=== PATIENT | female | born 2000 | race African-American/Black ===

== ENCOUNTER 2023-01-10 08:48 | Emergency (ER) | payer OTHER, SELFPAY ==
--- NOTE | ~2023-01-10 | XR_ITS ---
EXAMINATION: XR shoulder RT min 2V INDICATION: Right shoulder pain TECHNIQUE: Four views of the right shoulder are submitted. COMPARISON: None FINDINGS: Normal alignment. No fracture. Glenohumeral and acromioclavicular joint spaces are normal. Soft tissues are unremarkable. IMPRESSION: 1. No acute osseous abnormality. Reviewed, dictated and finalized at location B. ENTRY COORDINATOR
--- NOTE | ~2023-01-10 | XR_ITS ---
EXAMINATION: XR hand LT min 3V INDICATION: Left hand pain TECHNIQUE: Three views of the left hand are obtained. COMPARISON: 10/08/2013 FINDINGS: No fracture, dislocation, or subluxation. The bones, soft tissues, and joint spaces are nor mal. IMPRESSION: 1. No acute osseous abnormality. Reviewed, dictated and finalized at location B. ES SUPERINTENDENT
--- NOTE | ~2023-01-10 | XR_ITS ---
EXAMINATION: XR elbow RT min 3V INDICATION: Right elbow pain TECHNIQUE: Four views of the right elbow are obtained. COMPARISON: None available FINDINGS: No fracture, dislocation, or subluxation. The bones, soft tissues, and joint spaces are nor mal. IMPRESSION: 1. No acute osseous abnormality. Reviewed, dictated and finalized at location B. ER
[2023-01-10 08:53] VITALS: BP 120/69; PULSE 64; RESP 16; TEMP 36.3; O2SAT 100
--- NOTE | 2023-01-10 09:18 | ED.GENADULT ---
HPI - General Adult General Chief complaint: Unspecified Stated complaint: R ELBOW AND L FINGER PAIN AND WANTS BLOODWORK Time Seen by Provider: 01/10/23 09:00 History of Present Illness HPI narrative: Patient is a 22-year-old right-handed female here for evaluation of right elbow, right shoulder and left hand pain over the past day. Patient states that she is very clumsy and ran into a object yesterday causing her to have pain and swelling at the areas. Reports extension of the elbow causes pain. She has not taken any medicine for pain, does not like taking it reportedly. Denies any numbness or tingling anywhere. No head injury or loss of consciousness sustained yesterday. Related Data Allergies Allergy/AdvReac Type Severity Reaction Status Date / Time No Known Allergies Allergy Verified 09/16/22 14:46 Review of Systems Review of Systems: Gen.: Denies fevers or chills Eyes: Denies eye pain or visual change ENT: Denies congestion Respiratory: Denies shortness of breath or cough CV: Denies chest pain or palpitations GI: Denies abdominal pain nausea, emesis or diarrhea denies burning, urgency, frequency or hematuria Musculoskeletal: Reports elbow, shoulder and left finger pain Neuro: Denies numbness, tingling, weakness or focal weakness Skin: Denies rash Except as documented, all other systems reviewed and negative PMFSH Past Medical History Medical History Anxiety Depression Encounter for screening examination for sexually transmitted disease Irregular periods Family History Family History Other Hypertension Social History Social History (Updated 09/16/22 @ 14:47 by NANETTE Greenberg) Smoking status: Current some day smoker Tobacco type: e-cigarettes/vaping Alcohol intake: current Alcohol use details: socially Substance use: current Substance use type: marijuana Living arrangements: other Additional living arrangements comments: single Occupation/Education: occupation 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 Head: Normocephalic and atraumatic. EYES: PERRLA/EOMI, conjunctivae clear NOSE: No nasal drainage EARS: External ear normal in appearance THROAT: Oropharynx is clear. Mucous membranes are moist. NECK: Supple. No adenopathy, no masses. RESPIRATORY: Airway patent, respirations nonlabored. Clear to auscultation bilaterally, no rales, rhonchi, wheezing. CARDIOVASCULAR: Regular rate and rhythm without murmurs, rubs, or gallops. ABDOMINAL: Normoactive bowel sounds. Soft, nontender, nondistended. No rebound tenderness or guarding. MUSCULOSKELETAL: Right elbow is held at 90 degrees of flexion with small area of ecchymosis and swelling over the posterior aspect of the olecranon that is tender to palpation. Reports extreme pain with extension at the elbow . Tenderness to palpation along the humeral head with slight deformity noted. Left fourth and fifth digits are with deformity, slightly held in flexion NEURO: Normal speech. No focal neurologic deficits. SKIN: Skin is warm and dry. No rashes. PSYCHIATRIC: Normal affect/mood. Course Vital Signs Vital signs: Vital Signs Temperature 97.4 F L 01/10/23 08:53 Pulse Rate 64 01/10/23 08:53 Respiratory Rate 16 01/10/23 08:53 Blood Pressure 120/69 01/10/23 08:53 Pulse Oximetry 100 01/10/23 08:53 Oxygen Delivery Room Air 01/10/23 08:53 Temperature 97.4 F L 01/10/23 08:53 Pulse Rate 64 01/10/23 08:53 Respiratory Rate 16 01/10/23 08:53 Blood Pressure 120/69 01/10/23 08:53 Pulse Oximetry 100 01/10/23 08:53 Oxygen Delivery Room Air 01/10/23 08:53 Medical Decision Making MDM
== END 2023-01-10 10:32 | disposition home or self-care (01) ==
PROVIDERS: Emergency Provider Physician Assistant
DX: S50.01XA Contusion of right elbow, initial encounter (principal); S49.91XA Unspecified injury of right shoulder and upper arm, initial encounter; S69.92XA Unspecified injury of left wrist, hand and finger(s), initial encounter; F17.290 Nicotine dependence, other tobacco product, uncomplicated; W22.8XXA Striking against or struck by other objects, initial encounter
CPT/HCPCS: 73030; 73080; 73130; 99284

== ENCOUNTER 2023-05-26 10:59 | Outpatient (CLI) | payer OTHER, SELFPAY ==
[2023-05-26 12:26] LABS: Basophils Percent Auto 0.4 % (0.2-1.2); Eosinophils Percent Auto 0.6 % (0-4.4); Hematocrit 41.1 % (37.0-47.0); Hemoglobin 13.6 g/dL (12.0-15.0); Immature Granulocyte Absolute 0.01 K/mm3 (0.00-0.031); Immature Granulocyte Percent A 0.2 % (0-0.5); Lymphocytes Absolute Auto 1.71 K/mm3 (0.9-3.2); Mean Corpuscular HGB Conc 33.1 g/dl (32-36); Mean Corpuscular Hemoglobin 30.8 pg (26-34); Mean Platelet Volume 9.8 fl (7.4-10.4); Monocytes Absolute Auto 0.3 K/mm3 (0.1-0.6); Monocytes Percent Auto 5.9 % (2.6-8.5); Neutrophils Absolute Auto 2.8 K/mm3 (1.3-6.7); Neutrophils Percent Auto 57.9 % (45.5-73.1); Platelet Count Result 221 k/mm3 (150-375); Red Blood Count 4.42 M/mm3 (4.2-5.4); Red Cell Distribution Width 12.2 % (11.5-14.5); White Blood Count 4.9 K/mm3 (4.5-10.0)
[2023-05-26 12:55] LABS: Beta HCG Quantitative < 2.39 mIU/ML
[2023-05-26 13:10] LABS: Hepatitis B Surface Antigen Negative (Negative); Thyroid Stimulating Hormone 0.179 uIU/mL (0.465-4.680)
[2023-05-26 13:16] LABS: HAV RESULT Negative (Negative); Hepatitis B Core IgM Result Negative (Negative)
[2023-05-26 13:19] LABS: HIV 1/2 Ab P24 Ag Result Negative (Negative)
[2023-05-26 13:28] LABS: Hepatitis C Virus Antibody Negative (Negative)
[2023-05-26 15:14] LABS: Rapid Plasma Reagin Non-Reactive (NonReactive)
[2023-05-30 10:57] LABS: Testosterone Total 62 ng/dL (2-45)
[2023-06-01 05:13] LABS: FSH 7.4 mIU/mL (***); Progesterone 0.9 ng/mL (***)
[2023-06-03 17:19] LABS: Estradiol, Ultrasensitive 80 pg/mL
== END 2023-05-26 11:00 | disposition home or self-care (01) ==
PROVIDERS: PCP Family Medicine; Visit Provider Student in an Organized Health Care Education/Training Program
DX: Z11.3 Encounter for screening for infections with a predominantly sexual mode of transmission (principal); N92.0 Excessive and frequent menstruation with regular cycle
CPT/HCPCS: 36415; 80074; 82670; 83001; 84144; 84402; 84403; 84443; 84702; 85025; 86592; 86695; 86696; 86703; G0432

== ENCOUNTER 2023-05-27 09:33 | Outpatient (CLI) | payer OTHER, SELFPAY ==
[2023-05-27 10:49] LABS: Free T4 Free Thyroxine 1.02 ng/mL (0.78-2.19)
== END 2023-05-27 09:34 | disposition home or self-care (01) ==
PROVIDERS: PCP Family Medicine; Visit Provider Student in an Organized Health Care Education/Training Program
DX: R79.89 Other specified abnormal findings of blood chemistry (principal)
CPT/HCPCS: 36415; 84439

== ENCOUNTER 2023-09-02 10:38 | Outpatient (CLI) | payer OTHER, SELFPAY ==
[2023-09-02 11:53] LABS: Thyroid Stimulating Hormone 0.279 uIU/mL (0.465-4.680)
== END 2023-09-02 10:39 | disposition home or self-care (01) ==
LOC: ANHLAB 10:40
PROVIDERS: PCP Family Medicine; Visit Provider Student in an Organized Health Care Education/Training Program
DX: N92.0 Excessive and frequent menstruation with regular cycle (principal)
CPT/HCPCS: 36415; 84443

== ENCOUNTER 2023-09-12 10:41 | Outpatient (CLI) | payer OTHER, SELFPAY ==
[2023-09-16 11:06] LABS: Testosterone Total 50 ng/dL (2-45)
[2023-09-16 11:24] LABS: Testosterone Free 2.8 pg/mL (0.2-5.0)
== END 2023-09-12 10:42 | disposition home or self-care (01) ==
LOC: ANHLAB 10:42
PROVIDERS: PCP Family Medicine; Visit Provider Student in an Organized Health Care Education/Training Program
DX: N92.0 Excessive and frequent menstruation with regular cycle (principal)
CPT/HCPCS: 36415; 84402; 84403

== ENCOUNTER 2023-09-23 11:06 | Outpatient (CLI) | payer OTHER, SELFPAY ==
[2023-09-26 15:16] LABS: Triiodothyronine T3 Free 3.2 pg/mL (2.3-4.2)
== END 2023-09-23 11:07 | disposition home or self-care (01) ==
LOC: ANHLAB 11:08
PROVIDERS: PCP Family Medicine; Referring Provider Student in an Organized Health Care Education/Training Program; Visit Provider Physician Assistant
DX: R10.2 Pelvic and perineal pain (principal); R79.89 Other specified abnormal findings of blood chemistry
CPT/HCPCS: 36415; 84439; 84481; 87086

== ENCOUNTER 2023-09-30 14:02 | Outpatient (CLI) | payer OTHER, SELFPAY ==
--- NOTE | ~2023-09-30 | US_ITS ---
US thyroid INDICATION: Thyrotoxicosis TECHNIQUE: Real-time sonographic images of the thyroid gland were obtained. COMPARISON: No prior studies for comparison. FINDINGS: The right thyroid lobe measures 5.5 x 1.7 x 1.6 cm. The left thyroid lobe measures 5.4 x 1 .9 x 1.8 cm. There is normal echotexture and echogenicity throughout the thyroid gland. No discrete n odules identified. Increased vascular flow is present. IMPRESSION: 1. Enlarged hypervascular thyroid gland. No discrete mass. Reviewed, dictated and finalized at location A.
== END 2023-09-30 14:03 | disposition home or self-care (01) ==
PROVIDERS: PCP Family Medicine; Visit Provider Physician Assistant
DX: E04.9 Nontoxic goiter, unspecified (principal); E05.90 Thyrotoxicosis, unspecified without thyrotoxic crisis or storm
CPT/HCPCS: 76536

== ENCOUNTER 2024-06-04 10:56 | Outpatient (CLI) | payer OTHER, SELFPAY | END 2024-06-04 10:57 | disposition home or self-care (01) | LOC: ANHLAB 10:58 | PROVIDERS: PCP Family Medicine; Visit Provider Student in an Organized Health Care Education/Training Program | DX: N92.6 Irregular menstruation, unspecified (principal) | CPT/HCPCS: 36415; 84702 ==

== ENCOUNTER 2024-06-18 16:25 | Outpatient (CLI) | payer MEDICAID, SELFPAY ==
[2024-06-18 16:58] LABS: Basophils Percent Auto 0.3 % (0.2-1.2); Eosinophils Percent Auto 0.4 % (0-4.4); Hematocrit 38.5 % (37.0-47.0); Hemoglobin 12.7 g/dL (12.0-15.0); Immature Granulocyte Absolute 0.04 K/mm3 (0.00-0.031); Immature Granulocyte Percent A 0.4 % (0-0.5); Lymphocytes Absolute Auto 1.38 K/mm3 (0.9-3.2); Lymphocytes Percent Auto 12.6 % (18.3-44.2); Mean Corpuscular Hemoglobin 30.5 pg (26-34); Mean Corpuscular Volume 92.5 fl (80-100); Mean Platelet Volume 9.3 fl (7.4-10.4); Monocytes Absolute Auto 0.7 K/mm3 (0.1-0.6); Monocytes Percent Auto 6.7 % (2.6-8.5); Neutrophils Absolute Auto 8.8 K/mm3 (1.3-6.7); Neutrophils Percent Auto 79.6 % (45.5-73.1); Platelet Count Result 265 k/mm3 (150-375); Red Blood Count 4.16 M/mm3 (4.2-5.4); Red Cell Distribution Width 12.2 % (11.5-14.5)
[2024-06-18 18:03] LABS: Hepatitis B Surface Antigen Negative (Negative); Rubella IgG Antibody 4.1 IU/ML
[2024-06-18 18:03] LABS: HIV 1/2 Ab P24 Ag Result Negative (Negative)
[2024-06-19 12:18] LABS: Varicella IgG Antibody <135.00 index
[2024-06-19 13:35] LABS: Rapid Plasma Reagin Non-Reactive (NonReactive)
[2024-06-19 15:37] LABS: CMV IgG Antibody <0.60 U/mL
== END 2024-06-18 16:26 | disposition home or self-care (01) ==
LOC: ANHLAB 16:27
PROVIDERS: PCP Family Medicine; Visit Provider Student in an Organized Health Care Education/Training Program
DX: N94.89 Other specified conditions associated with female genital organs and menstrual cycle (principal)
CPT/HCPCS: 36415; 84702; 85025; 86592; 86644; 86703; 86747; 86762; 86787; 86850; 86900; 86901; 87086; 87340; G0432

== ENCOUNTER 2025-07-01 14:36 | Outpatient (CLI) | payer OTHER, SELFPAY ==
--- OUTSIDE RECORDS SUMMARY | 2025-07-01 14:53 | XMS_ITS | Clinical Summary ---
Author Organization [facility] Address [address] [place] [address] Phone Care Team Providers Care Cloth Handler Name Role Phone Daly Medeiros MD Primary Care Provider [phone] Allergies No known active allergies Medications cyclobenzaprine (FLEXERIL) 10 MG Tablet Take 1 Tablet by mouth 3 times daily as needed for Muscle spasms. 30 Tablet 03/06/2023 Active naproxen (NAPROSYN) 500 MG Tablet Take 1 Tablet by mouth 2 times daily as needed for Mild or more severe pain. 20 Tablet 03/06/2023 Active Social History Tobacco Use Types Packs/Day Years Used Date Smoking Tobacco: Never Smokeless Tobacco: Never Tobacco Cessation:Counseling Given: No Alcohol Use Standard Drinks/Week Comments Not Asked 0 (1 standard drink = 0.6 oz pur e alcohol) socially Comments No Sex and Gender Information Value Date Recorded Sex Assigned at Not on file Legal Sex Female 9:39 AM CDT Gender Identity Not on file Sexual Orientation Not on file Last Filed Vital Signs Vital Sign Reading Time Taken Comments Blood Pressure 101/55 03/06/2023 8:15 PM CDT Pulse 71 03/06/2023 8:15 PM CDT Temperature 36.6 C (97.8 F) 03/06/2023 5:45 PM CDT Respiratory Rate 18 03/06/2023 5:45 PM CDT Oxygen Saturation 98% 03/06/2023 8:15 PM CDT Inhaled Oxygen Concentration - - Weight 45.4 kg (100 lb) 03/06/2023 5:45 PM CDT Height 160 cm (5' 3) 03/06/2023 5:45 PM CDT Body Mass Index 17.71 03/06/2023 5:45 PM CDT Plan of Treatment Health Maintenance Due Date Last Done Comments Hepatitis C Virus (HCV) Screening 1998 Hepatitis B Immunization (3 of 3 - 3-dose series) 01/05/2000 11/10/1999, 1998 Pap Smear 2019 SARS-COV-2 Immunization ( season) 2024 04/05/2021, 03/11/2021 Influenza Immunization (#1) 2025 Respiratory Syncytial Virus (RSV) Immunization (Adult) (1 - 1-dose 75+ series) 2073 DTaP/Tdap/Td Immunization Discontinued 2013, 02/08/2009, 08/24/1999, Additional history exists Meningococcal Immunization (ACWY) Completed 07/08/2014 TdaP Immunization Completed 07/08/2014, 02/08/2009 Human Papillomavirus (HPV) Immunization Completed 08/27/2016, 06/23/2015, 07/08/2014 Pneumococcal Immunization Combined Aged Out No longer eligible based on patient's age to complete this topic Rotavirus Immunization Aged Out No lo nger eligible based on patient's age to complete this topic Insurance [employer] Care Teams Cloth Handler Relationship Specialty Start Date End Date Daly Medeiros MD [address] [place] [address] PCP - General Family Medicine 03/06/23
--- OUTSIDE RECORDS SUMMARY | 2025-07-01 14:53 | XMS_ITS | Clinical Summary ---
Author Organization [facility] Address [address] [place] [address] Care Team Providers Care Shake Cutter Name Role Phone Michela Sylvester MD Primary Care Provider [phone] Allergies Active Allergy Reactions Criticality Noted Date Comments No Known Allergies Other (See comments) Low 019 Reaction: Medications No known medications Active Problems Problem Noted Date Diagnosed Date Subclinical hyperthyroidism 04/03/2019 Assessment & Plan (04/03/2019 4:30 PM CDT): With normal thyroid ultrasound. I would not explain any of the patient's symptoms based on this very mild subclinical hyperthyroidism which will not have any indication for treatment. I will recheck thyroid function tests including testing for autoimmune thyroiditis with TPO antibodies and TSI. If there is any abnormality needs to be addressed I will advise the patient Otherwise will follow up in 4 months. Surgical History Surgery Date Site/Laterality Comments OTHER SURGICAL HISTORY Irregular, heavy, painful periods: OCP's OTHER SURGICAL HISTORY Chlamydia: Zithromax OTHER SURGICAL HISTORY 2014 Suicide attempt 10/24/15: hospitalization OTHER SURGICAL HISTORY 2016 : induced Medical History Medical History Date Comments Hx Other Medical Irregular, heav y, painful periods Hx Other Medical Headaches Hx Other Medical 2016 Chlamydia Hx Other Medical Depression Hx Other Medical 2014 Suicide attempt 10/24/15 Hx Other Medical 2016 Anxiety Family History Medical History Relation Name Comments Hypertension Father Hypertension; Diabetes Father's Sister 1 Diabetes; Brain cancer Father's Sister 2 Brain tumo r; Diabetes Maternal Grandfather Diabete s; Suicidality Mother Suicide; Cause of : Suicide Cancer Other 1 Family history of Cancer; Heart disease Other 2 Family history of Heart disease; Hypertension Other 3 Family history of Hypertension; Hypertension Paternal Grandfather Hyperte nsion; Diabetes Paternal Grandmother Diabete s; Hypertension Paternal Grandmother Hyperte nsion; Stroke Paternal Grandmother Stroke; Relation Name Status Comments Father Father's Sister 1 Father's Sister 2 Maternal Grandfather Mother (Age 41) Other 1 Other 2 Other 3 Paternal Grandfather Paternal Grandmother Social History Tobacco Use Types Packs/Day Years Used Date Smoking Tobacco: Never Smokeless Tobacco: Never Tobacco Cessation:Counseling Given: Not Answered Alcohol Use Standard Drinks/Week Comments Yes 0 (1 standard drink = 0.6 oz pur e alcohol) AUDIT-C Answer Date Recorded Frequency of Alcohol Consumption Monthly or less 04/03/2019 Average Number of Drinks Not on file 019 Frequency of Binge Drinking Not on file 05/2019 PHQ-2 Answer Date Recorded PHQ-2 Score 1 07/20/2019 Comments Unknown Sex and Gender Information Value Date Recorded Sex Assigned at Not on file Legal Sex Female 9:36 AM LUMBER BUYER Gender Identity Not on file Sexual Orientation Not on file Obstetrics History Last Filed Vital Signs Vital Sign Reading Time Taken Comments Blood Pressure 135/94 10/11/2022 9:45 PM LUMBER BUYER Pulse 92 10/11/2022 9:45 PM LUMBER BUYER Temperature 36.7 C (98 F) 10/11/2022 9:45 PM LUMBER BUYER Respiratory Rate 18 10/11/2022 9:45 PM LUMBER BUYER Oxygen Saturation 100% 10/11/2022 9:45 PM LUMBER BUYER Inhaled Oxygen Concentration - - Weight 45.4 kg (100 lb) 10/11/2022 9:45 PM LUMBER BUYER Height 160 cm (5' 3) 04/03/2019 1:42 PM CDT Body Mass Index 17.71 04/03/2019 1:42 PM CDT Plan of Treatment Health Maintenance Due Date Last Done Comments Cervical Cancer Screening 1998 DTaP/Tdap/Td Vaccine (1 - Tdap) 2009 Varicella Vaccines (1 of 2 - 13+ 2-dose series) 2011 Hepatitis B Screening 2016 Regular Well Visit/Exam 18-64 2016 Depression Screening 04/03/2020 04/03/2019 HPV Vaccines (1 - 3-dose SCD M series) 2025 Influenza Vaccine (#1) 2025 Hepatitis C Screening Completed 02/24/2016 Pneumococcal vaccine <65 Aged Out No longer eligible based on patient's age to complete this topic Procedures Procedure Name Priority Date/Time Associated Diagnosis Comments SERUM HEPATITIS C AB Routine 02/24/2016 2:42 PM CDT from Last 3 Months or Most Recently Relevant to Health Maintenance Results * Serum Hepatitis C ab (02/24/2016 2:42 PM CDT) HCV ab Negative Negative HISTORICAL RESULTS Serum 02/24/2016 2:42 PM CDT Jonna Ruelas MD LAB BLOOD ORDERABLE S Final Result HISTORICAL RESULTS from Last 3 Months or Most Recently Relevant to Health Maintenance Insurance [employer] OPEN ACCESS Care Teams Shake Cutter Relationship Specialty Start Date End Date Michela Sylvester MD [address] [place] [id number] PCP - General 09/24/13
--- OUTSIDE RECORDS SUMMARY | 2025-07-01 14:53 | XMS_ITS | Referral Summary ---
Author Organization [facility] Address [address] [place] [address] Care Team Providers Care Gas Brazer Name Role Phone Michela Sylvester MD Primary Care Provider [phone] Allergies Active Allergy Reactions Criticality Noted Date [...] Otherwise will follow up in 4 months. 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 SUPERVISOR Gender Identity Not on file Sexual Orientation Not on file Last Filed Vital Signs Vital Sign Reading Time Taken Comments Blood Pressure 135/94 10/11/2022 9:45 PM STOCK SUPERVISOR Pulse 92 10/11/2022 9:45 PM STOCK SUPERVISOR Temperature 36.7 C (98 F) 10/11/2022 9:45 PM STOCK SUPERVISOR Respiratory Rate 18 10/11/2022 9:45 PM STOCK SUPERVISOR Oxygen Saturation 100% 10/11/2022 9:45 PM STOCK SUPERVISOR Inhaled Oxygen Concentration - - Weight 45.4 kg (100 lb) 10/11/2022 9:45 PM STOCK SUPERVISOR Height 160 cm (5' 3) 04/03/2019 1:42 PM CDT Body Mass Index 17.71 04/03/2019 1:42 PM CDT Plan of Treatment Not on file Procedures Procedure Name Priority Date/Time Associated Diagnosis Comments SERUM HEPATITIS C AB Routine 02/24/2016 2:42 PM CDT from Last 3 Months or Most Recently Relevant to Health Maintenance Results * Serum Hepatitis C ab (02/24/2016 2:42 PM CDT) HCV ab Negative Negative HISTORICAL RESULTS Serum 02/24/2016 2:42 PM CDT us Jonna Ruelas MD LAB BLOOD ORDERABLE S Final Result HISTORICAL RESULTS from Last 3 Months or Most Recently Relevant to Health Maintenance Insurance [employer] OPEN ACCESS [employer] OPEN ACCESS Care Teams Gas Brazer Relationship Specialty Start Date End Date Michela Sylvester MD [address] [facility] [address] [place] [id number] PCP - General 09/24/13
[2025-07-01 15:03] LABS: Hematocrit 43.7 % (37.0-47.0); Hemoglobin 13.8 g/dL (12.0-15.0); Mean Corpuscular HGB Conc 31.6 g/dl (32-36); Mean Corpuscular Hemoglobin 28.7 pg (26-34); Mean Corpuscular Volume 90.9 fl (80-100); Platelet Count Result 303 k/mm3 (150-375); Red Blood Count 4.81 M/mm3 (4.2-5.4); White Blood Count 6.2 K/mm3 (4.5-10.0)
[2025-07-01 15:18] LABS: Alanine Aminotransferase 21 U/L (6-35); Albumin Level 4.4 g/dL (3.5-5.1); Alkaline Phosphatase 80 U/L (38-126); Anion Gap 6 mmol/L (4-12); Aspartate Amino Transferase 26 U/L (14-36); Bilirubin,Total 0.5 mg/dL (0.2-1.3); Blood Urea Nitrogen 16 mg/dL (7-17); Calcium 9.0 mg/dL (8.4-10.2); Carbon Dioxide 28 mmol/L (22-30); Chloride 102 mmol/L (98-107); Estimated Glomerular Filt Rate > 60; Glucose 89 mg/dL (65-110); Potassium 3.9 mmol/L (3.4-5.0); Sodium 136 mmol/L (137-145); Total Protein 7.3 g/dL (6.3-8.2)
[2025-07-01 15:48] LABS: Syphilis IgG/IgM Antibody Non-Reactive (Nonreactive)
[2025-07-01 15:50] LABS: Hepatitis B Surface Antigen Negative (Negative)
[2025-07-01 15:53] LABS: Thyroid Stimulating Hormone 0.308 uIU/mL (0.465-4.680)
[2025-07-01 15:56] LABS: HAV RESULT Negative (Negative); Hepatitis B Core IgM Result Negative (Negative)
[2025-07-01 15:58] LABS: HIV 1/2 Ab P24 Ag Result Negative (Negative)
[2025-07-02 06:07] LABS: HSV 1 IgG, Type Spec Reactive (Non Reactive); HSV 2 IgG, Type Spec Non Reactive (Non Reactive)
== END 2025-07-01 14:37 | disposition home or self-care (01) ==
LOC: ANHLAB 14:40
PROVIDERS: Physician Assistant Medical; PCP Family Medicine; Visit Provider Obstetrics & Gynecology
DX: Z00.00 Encounter for general adult medical examination without abnormal findings (principal); Z11.3 Encounter for screening for infections with a predominantly sexual mode of transmission; R79.89 Other specified abnormal findings of blood chemistry; E04.8 Other specified nontoxic goiter
CPT/HCPCS: 36415; 80053; 80074; 84443; 85027; 86593; 86695; 86696; 86703; G0432